=== PATIENT | male | born 1935 | race Caucasian/White ===

== ENCOUNTER 2022-12-16 11:14 | Emergency (ER) | payer OTHER, MEDICARE ==
[2022-12-16] MEDS ORDERED: Zofran 4 MG/2 ML VIAL IV ONE (11:22)
[2022-12-16] MEDS ORDERED: MORPHINE SULFATE 4 MG INJ IV ONE (11:22)
--- NOTE | 2022-12-16 11:29 | ERPHSYRPT ---
- History of Present Illness Time Seen by Provider: 12/16/22 11:24 Source: patient Exam Limitations: no limitations Physician History: Patient is an 87-year-old male presents to our ED via EMS for evaluation of gross hematuria. Family reports symptoms started this morning at approximately 4 AM. Patient's home health nurse and family estimate approximately 600 cc of gross blood. Patient arrived via [facility] ambulance. Patient has had this problem in the past. Patient was seen at [facility] for the same and discharged 2 days ago. They did not return to his [facility] as EMS was concerned with patient's blood pressure and blood loss. Patient complains of lower abdominal pain. Patient has indwelling Maynard catheter which he states is due to enlarged prostate. Patient on Eliquis for history of PE. [facility]. Patient denies trauma. No fever. No nausea vomiting or diaphoresis. No flank pain. No hematochezia. Patient voices no other complaints or concerns at this time. Portions of this note were created with voice recognition technology. There may be grammatical, spelling, punctuation or sound alike errors Timing/Duration: today Severity: moderate Modifying Factors: Improves With: other (Palpation to lower abdomen/suprapubic region reproduces pain.) Associated Symptoms: denies symptoms Allergies/Adverse Reactions: clindamycin Allergy (Verified 12/16/22 14:40) oxycodone Allergy (Verified 12/16/22 14:40) Penicillins Allergy (Verified 12/16/22 14:40) Sulfa (Sulfonamide Antibiotics) Allergy (Verified 12/16/22 14:40) adhesive tape Adverse Reaction (Verified 12/16/22 14:40) atorvastatin Adverse Reaction (Verified 12/16/22 14:40) pravastatin Adverse Reaction (Verified 12/16/22 14:40) Home Medications: Acetaminophen 500 mg [Tylenol Extra Strength 500 mg] 1,000 mg PO BID 12/16/22 [History] Allopurinol 100 mg [Zyloprim 100 mg] 200 mg PO DAILY 12/16/22 [History] Apixaban [Eliquis] 5 mg PO BID 12/16/22 [History] Bisacodyl 10 mg [Dulcolax 10 MG SUPP] 10 mg RC DAILY PRN 12/16/22 [History] Buspirone HCl 5 mg [Buspar 5 mg] 5 mg PO BID 12/16/22 [History] Calcium Carbonate [Calcium] 1,000 mg PO Q2H PRN 12/16/22 [History] Carboxymethylcellulose Sodium 2 each OP QID PRN 12/16/22 [History] Carvedilol 12.5 mg [Coreg 12.5 mg] 12.5 mg PO BID 12/16/22 [History] Cholecalciferol (Vitamin D3) [Vitamin D3] 100 mcg PO DAILY 12/16/22 [History] Divalproex Sodium ER 250 mg [Depakote EXTENDED RELEASE 250 MG] 250 mg PO BID 12/16/22 [History] Docusate Sodium 100 mg [Docusate Sodium 100 MG] 100 mg PO BID 12/16/22 [History] Duloxetine HCl 40 mg PO DAILY 12/16/22 [History] Finasteride 5 mg [Proscar 5 MG] 5 mg PO DAILY 12/16/22 [History] Furosemide 40 mg [Lasix 40 MG] 40 mg PO DAILY 12/16/22 [History] Montelukast Sodium 10 mg [Singulair 10 MG] 10 mg PO QPM 12/16/22 [History] Multivitamin [Multivitamins] 1 each PO DAILY 12/16/22 [History] Nitroglycerin 0.4 mg Tablet [Nitrostat 0.4 MG Tablet] 0.4 mg SL UD PRN 12/16/22 [History] Non-Formulary Drug [Non-Formulary Item] 0 each TOP BID 12/16/22 [History] Non-Formulary Drug [Non-Formulary Item] 0 each TOP DAILY 12/16/22 [History] Non-Formulary Drug [Non-Formulary Item] 1 each TOP DAILY 12/16/22 [History] PANTOPRAZOLE 40 mg Tablet [Protonix 40MG Tablet] 40 mg PO DAILY 12/16/22 [History] Pregabalin 50 mg [Lyrica 50MG] 75 mg PO BID 12/16/22 [History] Quetiapine Fumarate 25 mg [Seroquel 25 MG] 25 mg PO HS 12/16/22 [History] Ropinirole HCl 4 mg PO BID 12/16/22 [History] Rosuvastatin Calcium 2.5 mg PO UD 12/16/22 [History] Sennosides 8.6 mg PO DAILY 12/16/22 [History] Tamsulosin HCl 0.4 mg [Flomax 0.4 MG] 0.4 mg PO DAILY 12/16/22 [History] Trazodone HCl 50 mg [Desyrel 50 mg] 50 mg PO HS 12/16/22 [History] Triamcinolone Acetonide 0.1% [Kenalog 0.1% Ointment] 15 gm TP UD 12/16/22 [History] Trospium Chloride 20 mg PO BID 12/16/22 [History] - Review of Systems Constitutional: No Symptoms, No Fever, No Chills Eyes: No Symptoms Ears, Nose, & Throat: No Symptoms Respiratory: No Symptoms, No Cough, No Dyspnea Cardiac: No Symptoms, No Chest Pain, No Edema, No Syncope Abdominal/Gastrointestinal: No Symptoms, No Abdominal Pain, No Nausea, No Vomiting, No Diarrhea Genitourinary Symptoms: No Symptoms, No Dysuria Musculoskeletal: No Symptoms, No Back Pain, No Neck Pain Skin: No Symptoms, No Rash Neurological: No Symptoms, No Dizziness, No Focal Weakness, No Sensory Changes Psychological: No Symptoms Endocrine: No Symptoms Hematologic/Lymphatic: No Symptoms Immunological/Allergic: No Symptoms All Other Systems: Reviewed and Negative - Nursing Vital Signs Nursing Vital Signs: Initial Vital Signs Temperature 97.2 F 12/16/22 11:20 Pulse Rate 87 12/16/22 11:20 Respiratory Rate 20 12/16/22 11:20 Blood Pressure 126/55 12/16/22 11:20 O2 Sat by Pulse Oximetry 93 L 12/16/22 11:20 Pain Scale Pain Intensity 10 - Physical Exam General Appearance: no apparent distress, alert Eye Exam: PERRL/EOMI, eyes nml inspection Ears, Nose, Throat Exam: normal ENT inspection, TMs normal, pharynx normal, moist mucous membranes Neck Exam: normal inspection, non-tender, supple, full range of motion Respiratory Exam: normal breath sounds, lungs clear, airway intact, No respiratory distress Cardiovascular Exam: regular rate/rhythm, normal heart sounds, normal peripheral pulses Gastrointestinal/Abdomen Exam: soft, normal bowel sounds, No tenderness, No mass Back Exam: normal inspection, normal range of motion, No CVA tenderness, No vertebral tenderness Extremity Exam: normal inspection, normal range of motion, pelvis stable Neurologic Exam: alert, oriented x 3, cooperative, normal mood/affect, sensation nml, No motor deficits Skin Exam: normal color, warm, dry, No rash Lymphatic Exam: No adenopathy SpO2 Interpretation: normal SpO2: 93 O2 Delivery: Room Air - Course Nursing assessment & vital signs reviewed: Yes - CT Exams Abdomen/Pelvis CT Interpretation: Tele-radiologist Report (Diverticulosis, left renal cyst, right nephrolithiasis, blood in bladder, bilateral fatty inguinal hernias small fatty umbilical hernia, 3.1 cm AAA, chronic bony findings) Ordered Tests: Active Orders 24 hr Category Date Time Status IV Insertion STAT Care 12/16/22 11:19 Active Pulse Oximetry (ED) STAT Care 12/16/22 11:19 Active ABDOMEN AND PELVIS W/0 CONTRAS [CT] Stat Exams 12/16/22 11:21 Completed CBC W DIFF Stat Lab 12/16/22 11:35 Completed CMP Stat Lab 12/16/22 11:35 Completed CULTURE,URINE Stat Lab 12/16/22 14:34 Received PROTIME WITH INR Stat Lab 12/16/22 11:35 Completed PTT Stat Lab 12/16/22 11:35 Completed UA W/RFX UR CULTURE Stat Lab 12/16/22 14:34 Completed Medication Summary Generic Name Dose Route Start Last Admin Trade Name Freq PRN Reason Stop Dose Admin Sodium Chloride 1,000 mls @ 50 mls/hr 12/16/22 11:30 12/16/22 16:37 Sodium Chloride 0.9% 1000 Ml IV 01/15/23 11:29 50 mls/hr .Q20H TONIA Administration Discontinued Medications Generic Name Dose Route Start Last Admin Trade Name Freq PRN Reason Stop Dose Admin Ceftriaxone Sodium/Dextrose 1 g in 50 mls @ 100 mls/hr 12/16/22 16:32 12/16/22 16:37 Rocephin 1 Gm-D5w 50 Ml Bag IV 12/16/22 17:01 100 mls/hr STAT STA 100 mls/hr Administration Ceftriaxone Sodium/Dextrose Confirm 07/18/23 16:35 Rocephin 1 Gm-D5w 50 Ml Bag Administered 12/16/22 16:36 Dose 1 g in 50 mls @ ud IV .STK-MED ONE Morphine Sulfate 4 mg 12/16/22 11:22 12/16/22 11:51 Morphine Sulfate 4 Mg/Ml Injection IV 12/16/22 11:23 4 mg STAT ONE Administration Morphine Sulfate Confirm 12/16/22 11:48 Morphine Sulfate 4 Mg/Ml Injection Administered 12/16/22 11:49 Dose 4 mg .ROUTE .STK-MED ONE Ondansetron HCl 4 mg 12/16/22 11:22 Ondansetron Hcl 4 Mg/2 Ml Vial IV 12/16/22 11:23 STAT ONE Lab/Rad Data: Laboratory Result Diagrams 12/16/22 11:35 12/16/22 11:35 Laboratory Results 12/16/22 12/16/22 12/16/22 Range/Units 14:34 11:35 11:35 WBC (4.0-10.5) x10^3/uL RBC (4.1-5.6) x10^6/uL Hgb (12.5-18.0) g/dL Hct (42-50) % MCV (78-100) fL MCH (26-32) pg MCHC (32-36) g/dL RDW (11.5-14.0) % Plt Count (150-450) x10^3/uL MPV (7.5-11.0) fL Gran % (36.0-66.0) % Immature Gran % (Auto) (0.00-0.4) % Nucleat RBC Rel Count (0.00-0.1) % Eos # (Auto) (0-0.5) x10^3/uL Immature Gran # (Auto) (0.00-0.03) x10^3u/L Absolute Lymphs (auto) (1.0-4.6) x10^3/uL Absolute Monos (auto) (0.0-1.3) x10^3/uL Absolute Nucleated RBC (0.00-0.01) x10^3u/L Lymphocytes % (24.0-44.0) % Monocytes % (0.0-12.0) % Eosinophils % (0.00-5.0) % Basophils % (0.0-0.4) % Absolute Granulocytes (1.4-6.9) x10^3/uL Basophils # (0-0.4) x10^3/uL PT 11.3 (9.4-12.5) SECONDS INR 1.04 (0.8-3.0) APTT 29.7 (25.1-36.5) SECONDS Sodium 137 (137-145) mmol/L Potassium 4.5 (3.5-5.1) mmol/L Chloride 101 (98-107) mmol/L Carbon Dioxide 31 H (22-30) mmol/L Anion Gap 9.9 (5-15) MEQ/L BUN 27 H (9-20) mg/dL Creatinine 1.10 (0.66-1.25) mg/dL Estimated GFR > 60.0 ML/MIN Glucose 103 (74-106) mg/dL Calcium 8.5 (8.4-10.2) mg/dL Total Bilirubin 0.60 (0.2-1.3) mg/dL AST 21 (17-59) U/L ALT 22 (0-50) U/L Alkaline Phosphatase 56 (38-126) U/L Serum Total Protein 6.3 (6.3-8.2) g/dL Albumin 3.4 L (3.5-5.0) g/dL Urine Color Red A (Yellow) Urine Appearance Turbid A (Clear) Urine pH 5.0 (4.6-8.0) Ur Specific Torrey <=1.005 (1.005-1.030) Urine Protein 100 A (Negative) Urine Glucose (UA) Negative (Negative) mg/dL Urine Ketones Negative (Negative) Urine Blood Moderate A (Negative) Urine Nitrite Positive A (Negative) Urine Bilirubin Small A (Negative) Urine Urobilinogen 0.2 (0.2) mg/dL Ur Leukocyte Esterase Moderate A (Negative) U Hyaline Cast (Auto) NONE SEEN (0-2) /LPF Urine Microscopic RBC >100 A (0-5) /HPF Urine Microscopic WBC 51-100 A (0-5) /HPF Ur Epithelial Cells None Seen (None Seen) /HPF Urine Bacteria None Seen (None Seen) /HPF Urine Culture Reflexed ORDERED SEPARATELY (NO) 12/16/22 Range/Units 11:35 WBC 9.3 (4.0-10.5) x10^3/uL RBC 3.47 L (4.1-5.6) x10^6/uL Hgb 11.3 L (12.5-18.0) g/dL Hct 34.9 L (42-50) % MCV 100.6 H (78-100) fL MCH 32.6 H (26-32) pg MCHC 32.4 (32-36) g/dL RDW 14.1 H (11.5-14.0) % Plt Count 167 (150-450) x10^3/uL MPV 11.3 H (7.5-11.0) fL Gran % 78.5 H (36.0-66.0) % Immature Gran % (Auto) 0.4 (0.00-0.4) % Nucleat RBC Rel Count 0.0 (0.00-0.1) % Eos # (Auto) 0.21 (0-0.5) x10^3/uL Immature Gran # (Auto) 0.04 H (0.00-0.03) x10^3u/L Absolute Lymphs (auto) 0.97 L (1.0-4.6) x10^3/uL Absolute Monos (auto) 0.77 (0.0-1.3) x10^3/uL Absolute Nucleated RBC 0.00 (0.00-0.01) x10^3u/L Lymphocytes % 10.4 L (24.0-44.0) % Monocytes % 8.2 (0.0-12.0) % Eosinophils % 2.2 (0.00-5.0) % Basophils % 0.3 (0.0-0.4) % Absolute Granulocytes 7.32 H (1.4-6.9) x10^3/uL Basophils # 0.03 (0-0.4) x10^3/uL PT (9.4-12.5) SECONDS INR (0.8-3.0) APTT (25.1-36.5) SECONDS Sodium (137-145) mmol/L Potassium (3.5-5.1) mmol/L Chloride (98-107) mmol/L Carbon Dioxide (22-30) mmol/L Anion Gap (5-15) MEQ/L BUN (9-20) mg/dL Creatinine (0.66-1.25) mg/dL Estimated GFR ML/MIN Glucose (74-106) mg/dL Calcium (8.4-10.2) mg/dL Total Bilirubin (0.2-1.3) mg/dL AST (17-59) U/L ALT (0-50) U/L Alkaline Phosphatase (38-126) U/L Serum Total Protein (6.3-8.2) g/dL Albumin (3.5-5.0) g/dL Urine Color (Yellow) Urine Appearance (Clear) Urine pH (4.6-8.0) Ur Specific Torrey (1.005-1.030) Urine Protein (Negative) Urine Glucose (UA) (Negative) mg/dL Urine Ketones (Negative) Urine Blood (Negative) Urine Nitrite (Negative) Urine Bilirubin (Negative) Urine Urobilinogen (0.2) mg/dL Ur Leukocyte Esterase (Negative) U Hyaline Cast (Auto) (0-2) /LPF Urine Microscopic RBC (0-5) /HPF Urine Microscopic WBC (0-5) /HPF Ur Epithelial Cells (None Seen) /HPF Urine Bacteria (None Seen) /HPF Urine Culture Reflexed (NO) - Progress Progress: improved Progress Note: Patient is an 87-year-old male presents to our ED for evaluation of hematuria. Physical exam reveals suprapubic tenderness. Patient has gross blood in his indwelling Maynard catheter. Patient is on Eliquis for PE DVT. Work-up reveals Macrocytic anemia of 11.3. CT abdomen pelvis shows renal cysts. Debris suggestive of blood in the bladder. We performed bladder irrigation. The urine would clear however it would be later recur. Urinalysis reveals a urinary tract infection. Patient's hematuria likely combination of cystitis bladder irritation from indwelling Maynard catheter and Eliquis. However in light of the ongoing hematuria patient will require higher level of care as he will likely possibly need a cystoscopy. Patient will also need possibly cardiology to determine management of anticoagulation as this may be contributing the patient's hematuria. Plan of care discussed with patient. He agrees to transfer to [facility] for further evaluation and treatment. I spoke to Dr. Anguiano ER physician at [facility] who will accept transfer pending Dr. Harden's approval. Dr. Hardy their on-call urologist. I spoke to Dr. Loving at 4:25 PM. 12/16/22 16:33 Patient received a gram of Rocephin IV piggyback in our ED Complexity of problem addressed is moderate acute complicated No critical care time Complex of data reviewed and analyzed is extensive. Test ordered test reviewed and analyzed. Clinical correlation made between H&P and laboratory/imaging studies. It was determined that patient would better served at a facility that can provide a higher level of care specifically a specialization in urology and possibly cardiology. Management discussed with ER physician Dr. Loving who accepts transfer pending approval by Dr. Harden Risk of complication and or risk morbidity/mortality patient management is high. Patient will require hospitalization/transfer to higher level of care Patient agrees to transfer. Vital stable. Plan of care established for shared decision making. Patient voices no other complaints or concerns at this time. Portions of this note were created with voice recognition technology. There may be grammatical, spelling, punctuation or sound alike errors 12/16/22 16:[address] Harden at 5:[address] Harden excepts transfer. He states he will see patient as a consult on the floor at [facility]. Patient to be admitted to the hospitalist. 12/16/22 17:17 Counseled pt/family regarding: lab results, diagnosis, need for follow-up, rad results - Departure Departure Disposition: Transfer Clinical Impression: Hematuria, AAA (abdominal aortic aneurysm), Bilateral inguinal hernia, Fatty umbilical hernia, Renal cyst, left, Right nephrolithiasis, Gross hematuria, UTI (urinary tract infection) Condition: Stable Critical Care Time: No Referrals: HOSPITAL,'S [Primary Care Provider] - Follow up/PCP as directed
[2022-12-16] MEDS ORDERED: Sodium Chloride 0.9% 1000 ML 1,000 ML IV SCH (11:30)
[2022-12-16 11:39] LABS: Absolute Neutrophil Ct (ANC) 7.32 x10^3/uL (1.4-6.9); BASOPHIL % 0.3 % (0.0-0.4); Basophil (Absolute #) 0.03 x10^3/uL (0-0.4); Eosinophil % 2.2 % (0.00-5.0); Eosinophil (Absolute #) 0.21 x10^3/uL (0-0.5); Hematocrit 34.9 % (42-50); Hemoglobin 11.3 g/dL (12.5-18.0); IMMATURE GRAN # 0.04 x10^3u/L (0.00-0.03); IMMATURE GRAN % 0.4 % (0.00-0.4); Lymphocyte (Absolute #) 0.97 x10^3/uL (1.0-4.6); Lymphocytes % 10.4 % (24.0-44.0); Mean Cell Volume 100.6 fL (78-100); Mean Corpuscular Hemoglobin 32.6 pg (26-32); Mean Corpuscular Hgb Concent. 32.4 g/dL (32-36); Mean Platelet Volume 11.3 fL (7.5-11.0); Monocyte (Absolute #) 0.77 x10^3/uL (0.0-1.3); Monocytes % 8.2 % (0.0-12.0); Neutrophil % 78.5 % (36.0-66.0); Platelet Count 167 x10^3/uL (150-450); Red Blood Count 3.47 x10^6/uL (4.1-5.6); Red Cell Distribution Width 14.1 % (11.5-14.0); White Blood Count 9.3 x10^3/uL (4.0-10.5)
[2022-12-16] MEDS ORDERED: MORPHINE SULFATE 4 MG INJ ONE (11:48)
[2022-12-16 11:53] LABS: ALBUMIN 3.4 g/dL (3.5-5.0); ALKALINE PHOSPHATASE 56 U/L (38-126); ANION GAP 9.9 MEQ/L (5-15); BLOOD UREA NITROGEN 27 mg/dL (9-20); CHLORIDE 101 mmol/L (98-107); Calcium 8.5 mg/dL (8.4-10.2); Carbon Dioxide 31 mmol/L (22-30); EST GLOMERULAR FILTRATION RATE > 60.0 ML/MIN; Glucose 103 mg/dL (74-106); Potassium 4.5 mmol/L (3.5-5.1); SGOT/AST 21 U/L (17-59); SGPT/ALT 22 U/L (0-50); SODIUM 137 mmol/L (137-145); Total Protein 6.3 g/dL (6.3-8.2)
[2022-12-16 11:56] LABS: INR 1.04 (0.8-3.0); PROTIME 11.3 SECONDS (9.4-12.5); PTT 29.7 SECONDS (25.1-36.5)
--- NOTE | 2022-12-16 12:29 | XRAY ---
Indication: Pain. Hematuria. Multiple contiguous axial images obtained through the abdomen and pelvis without contrast. Comparison: None Lung bases demonstrates moderate dependent atelectasis. Heart is not enlarged with extensive coronary calcifications. [place] subcarinal and bilateral hilar calcified nodes. Noncontrasted stomach and bowel loops appear nonobstructed with normal appendix. Minimal descending and sigmoid diverticulosis without diverticulitis. Left kidney demonstrates a few cysts, largest midpole measuring 4.5 cm. Right lower renal calyx demonstrates nonobstructing punctate calculus. Normally distended urinary bladder demonstrates Maynard catheter in situ with slight hyperdensity surrounding the balloon tip, possible debris versus blood products. No free fluid/air. Remaining liver, gallbladder, pancreas, spleen, adrenal glands, kidneys, and ureters are unremarkable for noncontrast exam. Moderate scattered aortoiliac calcifications with 3.1 cm distal AAA. Osseous structures intact with osteopenia, moderate degenerative changes throughout visualized spine, and mild degenerative changes both hips. Incidental small bilateral fatty inguinal and small fatty umbilical hernias. Impression: 1. Maynard catheter in situ. Hyperdensity surrounds the balloon tip, possibly debris versus blood products. 2. Chronic findings including arteriosclerotic disease with distal AAA, colonic diverticulosis, left renal cysts, nonobstructing right renal punctate calculus, chronic bony findings, fatty umbilical/bilateral inguinal hernias, and old granulomatous disease.
[2022-12-16 14:44] LABS: Appearance Turbid (Clear); Bacteria None Seen /HPF (None Seen); Bilirubin Small (Negative); Blood Moderate (Negative); Epithelial Cells None Seen /HPF (None Seen); Glucose, Urine Negative (Negative); Hyaline Casts NONE SEEN /LPF (0-2); Leukocyte Esterase Moderate (Negative); Nitrite Positive (Negative); Protein,Urine Dip 100 (Negative); RBC >100 /HPF (0-5); Specific Gravity <=1.005 (1.005-1.030); Urobilinogen 0.2 mg/dL (0.2); WBC 51-100 /HPF (0-5)
[2022-12-16 14:45] LABS: ADD URINE CULTURE? ORDERED SEPARATELY (NO); Ketones Negative (Negative)
[2022-12-16] MEDS ORDERED: ROCEPHIN 1 Gm-D5w 50 ml Bag** 1 G/50 ML IVPB IV STA (16:32)
[2022-12-16] MEDS ORDERED: Sodium Chloride 0.9% 1000 ML 1,000 ML ONE (16:34)
[2022-12-16] MEDS ORDERED: ROCEPHIN 1 Gm-D5w 50 ml Bag** 1 G/50 ML IVPB IV ONE (16:35)
[2022-12-16 18:05] VITALS: BP 106/64; PULSE 68; O2SAT 92
== END 2022-12-16 19:14 | disposition short-term general hospital (02) ==
LOC: ED 11:14
DX: R31.0 Gross hematuria (principal); I71.40 Abdominal aortic aneurysm, without rupture, unspecified; K40.20 Bilateral inguinal hernia, without obstruction or gangrene, not specified as recurrent; K42.9 Umbilical hernia without obstruction or gangrene; N28.1 Cyst of kidney, acquired; N20.0 Calculus of kidney; N39.0 Urinary tract infection, site not specified; R10.30 Lower abdominal pain, unspecified; Z79.01 Long term (current) use of anticoagulants; Z79.899 Other long term (current) drug therapy
CPT/HCPCS: 36000; 36415; 74176; 80053; 81001; 85025; 85610; 85730; 87086; 94760; 96365; 96372; 99285; J0696; J2270

== ENCOUNTER 2022-12-28 13:45 | Emergency (ER) | payer OTHER, MEDICARE ==
[2022-12-28 14:19] VITALS: TEMP 98.4
[2022-12-28] MEDS ORDERED: Sodium Chloride 0.9% 1000 ML 1,000 ML ONE (14:28)
[2022-12-28] MEDS ORDERED: Sodium Chloride 0.9% 1000 ML 1,000 ML IV SCH (14:30)
[2022-12-28 14:42] LABS: Absolute Neutrophil Ct (ANC) 8.05 x10^3/uL (1.4-6.9); BASOPHIL % 0.5 % (0.0-0.4); Basophil (Absolute #) 0.05 x10^3/uL (0-0.4); Eosinophil % 4.5 % (0.00-5.0); Eosinophil (Absolute #) 0.46 x10^3/uL (0-0.5); Hematocrit 32.6 % (42-50); Hemoglobin 10.3 g/dL (12.5-18.0); IMMATURE GRAN # 0.03 x10^3u/L (0.00-0.03); IMMATURE GRAN % 0.3 % (0.00-0.4); Lymphocytes % 9.7 % (24.0-44.0); Mean Cell Volume 102.8 fL (78-100); Mean Corpuscular Hemoglobin 32.5 pg (26-32); Mean Corpuscular Hgb Concent. 31.6 g/dL (32-36); Mean Platelet Volume 11.3 fL (7.5-11.0); Monocyte (Absolute #) 0.72 x10^3/uL (0.0-1.3); Platelet Count 185 x10^3/uL (150-450); Red Blood Count 3.17 x10^6/uL (4.1-5.6); Red Cell Distribution Width 14.6 % (11.5-14.0); White Blood Count 10.3 x10^3/uL (4.0-10.5)
--- NOTE | 2022-12-28 14:42 | ERPHSYRPT ---
- History of Present Illness Time Seen by Provider: 12/28/22 14:39 Source: patient Patient Subjective Stated Complaint: SOB Triage Nursing Assessment: Patient brought into ED per EMS and transferred to bed with assist of 3. Patient A+O X3. Patient's skin pink, warm and dry. EMS reports getting called to patient with SOB. Upon arrival patient's home was very warm and he had several blankets on. Patient's initial O2 was 88% on room air. EMS applied O2 at 2 liters per N/C. Patient's O2 sat on room air in ER was 98%. Patient states he is still having trouble breathing. Patient denies pain or discomfort. No swelling or edema noted. Lungs diminished throughout. 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 Today patient call ambulance service for complaining of shortness of breath. Patient was brought into the emergency room where patient was appeared to be breathing normally but he was feeling very weak and was complaining that he has a hard time breathing. He denies any fever chills nausea or vomiting. Timing/Duration: today Associated Symptoms: weakness, ankle swelling, leg swelling Allergies/Adverse Reactions: clindamycin Allergy (Verified 12/28/22 13:58) oxycodone Allergy (Verified 12/28/22 13:58) Penicillins Allergy (Verified 12/28/22 13:58) Sulfa (Sulfonamide Antibiotics) Allergy (Verified 12/28/22 13:58) adhesive tape Adverse Reaction (Verified 12/28/22 13:58) atorvastatin Adverse Reaction (Verified 12/28/22 13:58) pravastatin Adverse Reaction (Verified 12/28/22 13:58) Home Medications: Acetaminophen 500 mg [Tylenol Extra Strength 500 mg] 1,000 mg PO BID 12/16/22 [History] Allopurinol 100 mg [Zyloprim 100 mg] 200 mg PO DAILY 12/16/22 [History] Apixaban [Eliquis] 5 mg PO BID 12/16/22 [History] Bisacodyl 10 mg [Dulcolax 10 MG SUPP] 10 mg RC DAILY PRN 12/16/22 [History] Buspirone HCl 5 mg [Buspar 5 mg] 5 mg PO BID 12/16/22 [History] Calcium Carbonate [Calcium] 1,000 mg PO Q2H PRN 12/16/22 [History] Carboxymethylcellulose Sodium 2 each OP QID PRN 12/16/22 [History] Carvedilol 12.5 mg [Coreg 12.5 mg] 12.5 mg PO BID 12/16/22 [History] Cholecalciferol (Vitamin D3) [Vitamin D3] 100 mcg PO DAILY 12/16/22 [History] Divalproex Sodium ER 250 mg [Depakote EXTENDED RELEASE 250 MG] 250 mg PO BID 12/16/22 [History] Docusate Sodium 100 mg [Docusate Sodium 100 MG] 100 mg PO BID 12/16/22 [History] Duloxetine HCl 40 mg PO DAILY 12/16/22 [History] Finasteride 5 mg [Proscar 5 MG] 5 mg PO DAILY 12/16/22 [History] Furosemide 40 mg [Lasix 40 MG] 40 mg PO DAILY 12/16/22 [History] Montelukast Sodium 10 mg [Singulair 10 MG] 10 mg PO QPM 12/16/22 [History] Multivitamin [Multivitamins] 1 each PO DAILY 12/16/22 [History] Nitroglycerin 0.4 mg Tablet [Nitrostat 0.4 MG Tablet] 0.4 mg SL UD PRN 12/16/22 [History] Non-Formulary Drug [Non-Formulary Item] 0 each TOP BID 12/16/22 [History] Non-Formulary Drug [Non-Formulary Item] 0 each TOP DAILY 12/16/22 [History] Non-Formulary Drug [Non-Formulary Item] 1 each TOP DAILY 12/16/22 [History] PANTOPRAZOLE 40 mg Tablet [Protonix 40MG Tablet] 40 mg PO DAILY 12/16/22 [History] Pregabalin 50 mg [Lyrica 50MG] 75 mg PO BID 12/16/22 [History] Quetiapine Fumarate 25 mg [Seroquel 25 MG] 25 mg PO HS 12/16/22 [History] Ropinirole HCl 4 mg PO BID 12/16/22 [History] Rosuvastatin Calcium 2.5 mg PO UD 12/16/22 [History] Sennosides 8.6 mg PO DAILY 12/16/22 [History] Tamsulosin HCl 0.4 mg [Flomax 0.4 MG] 0.4 mg PO DAILY 12/16/22 [History] Trazodone HCl 50 mg [Desyrel 50 mg] 50 mg PO HS 12/16/22 [History] Triamcinolone Acetonide 0.1% [Kenalog 0.1% Ointment] 15 gm TP UD 12/16/22 [History] Trospium Chloride 20 mg PO BID 12/16/22 [History] Hx Influenza Vaccination/Date Given: Yes Hx Pneumococcal Vaccination/Date Given: Yes Immunizations Up to Date: Yes Travel Risk - International Travel Have you traveled outside of the country in past 3 weeks: No - Coronavirus Screening Are you exhibiting any of the following symptoms?: No Close contact with a COVID-19 positive Pt in past 14-21 Days: No - Vaccine Status Have you recieved a Covid-19 vaccination: Yes [employer] Tier Off: Moderna - Vaccination Dates Date of 2cond Vaccination (if applicable): unknown - Review of Systems Constitutional: Weakness, No Fever, No Chills Eyes: No Symptoms Ears, Nose, & Throat: No Symptoms Respiratory: Dyspnea on Exertion (DERAS), No Cough, No Dyspnea Cardiac: Orthopnea, PND, No Chest Pain, No Edema, No Syncope Abdominal/Gastrointestinal: No Abdominal Pain, No Nausea, No Vomiting, No Diarrhea Genitourinary Symptoms: Urinary Retention, No Dysuria Musculoskeletal: No Back Pain, No Neck Pain Skin: No Rash Neurological: No Dizziness, No Focal Weakness, No Sensory Changes Psychological: No Symptoms Endocrine: No Symptoms All Other Systems: Reviewed and Negative - Past Medical History Other Medical History: pt won't answer at this time, in pain - Past Surgical History Other Surgical History: pt won't answer at this time - Social History Smoking Status: Former smoker Exposure to second hand smoke: No Drug Use: none Patient Lives Alone: No - Nursing Vital Signs Nursing Vital Signs: Initial Vital Signs Temperature 98.4 F 12/28/22 13:59 Pulse Rate 78 12/28/22 13:59 Respiratory Rate 24 12/28/22 13:59 Blood Pressure 124/54 12/28/22 13:59 O2 Sat by Pulse Oximetry 98 12/28/22 13:59 Pain Scale Pain Intensity 0 - Physical Exam General Appearance: mild distress, alert, lethargy Eye Exam: PERRL/EOMI Neck Exam: normal inspection, supple Respiratory Exam: diminished breath sounds, crackles/rales, rhonchi, wheezing Cardiovascular/Chest Exam: edema, JVD, irregular Abdominal/Gastrointestinal Exam: soft, No tenderness, No distention, No mass Extremity Exam: non-tender, normal range of motion, normal inspection, no calf tenderness, no pedal edema Neurologic Exam: alert, oriented x 3, cooperative, cadd instructor II-XII nml as tested, sensation nml, No motor deficits Skin Exam: normal color, warm, No dry SpO2 Interpretation: normal SpO2: 98 O2 Delivery: Room Air - Course Nursing assessment & vital signs reviewed: Yes - Radiology Exams Chest X-ray Interpretation: Reviewed by me (CHF changes) Ordered Tests: Active Orders 24 hr Category Date Time Status EKG-ER Only STAT Care 12/28/22 14:22 Active CHEST 1 VIEW (PORTABLE) Stat Exams 12/28/22 14:22 Taken CBC W DIFF Stat Lab 12/28/22 14:35 Completed CMP Stat Lab 12/28/22 14:35 Completed CULTURE,URINE Stat Lab 12/28/22 14:33 Received D-DIMER QUANTITATIVE Stat Lab 12/28/22 14:35 Completed MAGNESIUM Stat Lab 12/28/22 14:35 Completed NT PRO BNPII Stat Lab 12/28/22 14:35 Completed TROPONIN Q4H Lab 12/28/22 14:35 Completed TROPONIN Q4H Lab 12/28/22 18:30 Ordered TROPONIN Q4H Lab 12/28/22 22:30 Ordered UA W/RFX UR CULTURE Stat Lab 12/28/22 14:33 Completed Medication Summary Generic Name Dose Route Start Last Admin Trade Name Freq PRN Reason Stop Dose Admin Sodium Chloride 1,000 mls @ 50 mls/hr 12/28/22 14:30 12/28/22 14:28 Sodium Chloride 0.9% 1000 Ml IV 01/27/23 14:29 50 mls/hr .Q20H TONIA Administration Discontinued Medications Generic Name Dose Route Start Last Admin Trade Name Neel PRN Reason Stop Dose Admin Albuterol Sulfate Confirm 12/28/22 15:57 Albuterol Sulfate 2.5 Mg/3 Ml Neb Administered 12/28/22 15:58 Dose 2.5 mg IH .STK-MED ONE Albuterol/Ipratropium 3 ml 12/28/22 15:43 12/28/22 16:00 Ipratropium/Albuterol Sulfate 3 Ml Ampul.Neb IH 12/28/22 15:44 3 ml STAT ONE Administration Albuterol/Ipratropium Confirm 12/28/22 16:01 Ipratropium/Albuterol Sulfate 3 Ml Ampul.Neb Administered 12/28/22 16:02 Dose 3 ml IH .STK-MED ONE Ceftriaxone Sodium 1,000 mg 12/28/22 15:21 12/28/22 16:07 Ceftriaxone Sodium 1000 Mg Inj Vial IM 12/28/22 15:22 1,000 mg STAT ONE Administration Ceftriaxone Sodium Confirm 12/28/22 15:58 Ceftriaxone Sodium 1000 Mg Inj Vial Administered 12/28/22 15:59 Dose 1,000 mg .ROUTE .STK-MED ONE Methylprednisolone Sodium 0 mg 12/28/22 15:43 12/28/22 16:00 Succinate 125 mg/ Sterile IV 12/28/22 15:44 125 mg Water 2 ml STAT ONE Administration Enoxaparin Sodium 80 mg 12/28/22 15:56 Enoxaparin Sodium 80 Mg/0.8 Ml Syringe SQ 12/28/22 15:57 STAT ONE Enoxaparin Sodium Confirm 12/28/22 16:26 Enoxaparin Sodium 80 Mg/0.8 Ml Syringe Administered 12/28/22 16:27 Dose 80 mg SQ .STK-MED ONE Furosemide 20 mg 12/28/22 15:55 Furosemide 20 Mg/Vial IV 12/28/22 15:56 QAM STA Furosemide Confirm 12/28/22 16:26 Furosemide 20 Mg/Vial Administered 12/28/22 16:27 Dose 20 mg .ROUTE .STK-MED ONE Lidocaine HCl Confirm 12/28/22 15:58 Lidocaine Hcl 1% 20 Ml Mdv 20 Ml Ml Administered 12/28/22 15:59 Dose 3 ml .ROUTE .STK-MED ONE Methylprednisolone Sodium Succinate Confirm 12/28/22 15:58 Methylprednis Sod Succ 125 Mg/2 Ml Vial Administered 12/28/22 15:59 Dose 125 mg .ROUTE .STK-MED ONE Sterile Water Confirm 12/28/22 15:58 Water For Injection,Sterile 10 Ml Vial Administered 12/28/22 15:59 Dose 10 ml IJ .STK-MED ONE Lab/Rad Data: Laboratory Result Diagrams 12/28/22 14:35 12/28/22 14:35 Laboratory Results 12/28/22 12/28/22 12/28/22 Range/Units 14:35 14:35 14:35 WBC (4.0-10.5) x10^3/uL RBC (4.1-5.6) x10^6/uL Hgb (12.5-18.0) g/dL Hct (42-50) % MCV (78-100) fL MCH (26-32) pg MCHC (32-36) g/dL RDW (11.5-14.0) % Plt Count (150-450) x10^3/uL MPV (7.5-11.0) fL Gran % (36.0-66.0) % Immature Gran % (Auto) (0.00-0.4) % Nucleat RBC Rel Count (0.00-0.1) % Eos # (Auto) (0-0.5) x10^3/uL Immature Gran # (Auto) (0.00-0.03) x10^3u/L Absolute Lymphs (auto) (1.0-4.6) x10^3/uL Absolute Monos (auto) (0.0-1.3) x10^3/uL Absolute Nucleated RBC (0.00-0.01) x10^3u/L Lymphocytes % (24.0-44.0) % Monocytes % (0.0-12.0) % Eosinophils % (0.00-5.0) % Basophils % (0.0-0.4) % Absolute Granulocytes (1.4-6.9) x10^3/uL Basophils # (0-0.4) x10^3/uL D-Dimer 0.60 H (0.0-0.50) mg/L Sodium (137-145) mmol/L Potassium (3.5-5.1) mmol/L Chloride (98-107) mmol/L Carbon Dioxide (22-30) mmol/L Anion Gap (5-15) MEQ/L BUN (9-20) mg/dL Creatinine (0.66-1.25) mg/dL Estimated GFR ML/MIN Glucose (74-106) mg/dL Calcium (8.4-10.2) mg/dL Magnesium (1.6-2.3) mg/dL Total Bilirubin (0.2-1.3) mg/dL AST (17-59) U/L ALT (0-50) U/L Alkaline Phosphatase (38-126) U/L Troponin I 0.040 H* (0.000-0.034) ng/mL NT-Pro-B Natriuret Pep 310 (<300) pg/mL Serum Total Protein (6.3-8.2) g/dL Albumin (3.5-5.0) g/dL Urine Color (Yellow) Urine Appearance (Clear) Urine pH (4.6-8.0) Ur Specific [place] (1.005-1.030) Urine Protein (Negative) Urine Glucose (UA) (Negative) mg/dL Urine Ketones (Negative) Urine Blood (Negative) Urine Nitrite (Negative) Urine Bilirubin (Negative) Urine Urobilinogen (0.2) mg/dL Ur Leukocyte Esterase (Negative) U Hyaline Cast (Auto) (0-2) /LPF Urine Microscopic RBC (0-5) /HPF Urine Microscopic WBC (0-5) /HPF Ur Epithelial Cells (None Seen) /HPF Urine Bacteria (None Seen) /HPF Urine Culture Reflexed (NO) 12/28/22 12/28/22 12/28/22 Range/Units 14:35 14:35 14:33 WBC 10.3 (4.0-10.5) x10^3/uL RBC 3.17 L (4.1-5.6) x10^6/uL Hgb 10.3 L (12.5-18.0) g/dL Hct 32.6 L (42-50) % MCV 102.8 H (78-100) fL MCH 32.5 H (26-32) pg MCHC 31.6 L (32-36) g/dL RDW 14.6 H (11.5-14.0) % Plt Count 185 (150-450) x10^3/uL MPV 11.3 H (7.5-11.0) fL Gran % 78.0 H (36.0-66.0) % Immature Gran % (Auto) 0.3 (0.00-0.4) % Nucleat RBC Rel Count 0.0 (0.00-0.1) % Eos # (Auto) 0.46 (0-0.5) x10^3/uL Immature Gran # (Auto) 0.03 (0.00-0.03) x10^3u/L Absolute Lymphs (auto) 1.00 (1.0-4.6) x10^3/uL Absolute Monos (auto) 0.72 (0.0-1.3) x10^3/uL Absolute Nucleated RBC 0.00 (0.00-0.01) x10^3u/L Lymphocytes % 9.7 L (24.0-44.0) % Monocytes % 7.0 (0.0-12.0) % Eosinophils % 4.5 (0.00-5.0) % Basophils % 0.5 (0.0-0.4) % Absolute Granulocytes 8.05 H (1.4-6.9) x10^3/uL Basophils # 0.05 (0-0.4) x10^3/uL D-Dimer (0.0-0.50) mg/L Sodium 139 (137-145) mmol/L Potassium 4.5 (3.5-5.1) mmol/L Chloride 100 (98-107) mmol/L Carbon Dioxide 32 H (22-30) mmol/L Anion Gap 11.3 (5-15) MEQ/L BUN 35 H (9-20) mg/dL Creatinine 1.29 H (0.66-1.25) mg/dL Estimated GFR 55.9 ML/MIN Glucose 105 (74-106) mg/dL Calcium 8.8 (8.4-10.2) mg/dL Magnesium 2.7 H (1.6-2.3) mg/dL Total Bilirubin 0.30 (0.2-1.3) mg/dL AST 25 (17-59) U/L ALT 23 (0-50) U/L Alkaline Phosphatase 54 (38-126) U/L Troponin I (0.000-0.034) ng/mL NT-Pro-B Natriuret Pep (<300) pg/mL Serum Total Protein 6.1 L (6.3-8.2) g/dL Albumin 3.6 (3.5-5.0) g/dL Urine Color Yellow (Yellow) Urine Appearance Clear (Clear) Urine pH 7.5 (4.6-8.0) Ur Specific [place] 1.010 (1.005-1.030) Urine Protein Negative (Negative) Urine Glucose (UA) Negative (Negative) mg/dL Urine Ketones Negative (Negative) Urine Blood NHT (Negative) Urine Nitrite Negative (Negative) Urine Bilirubin Negative (Negative) Urine Urobilinogen 0.2 (0.2) mg/dL Ur Leukocyte Esterase Small A (Negative) U Hyaline Cast (Auto) NONE SEEN (0-2) /LPF Urine Microscopic RBC 0-2 (0-5) /HPF Urine Microscopic WBC 3-5 (0-5) /HPF Ur Epithelial Cells None Seen (None Seen) /HPF Urine Bacteria None Seen (None Seen) /HPF Urine Culture Reflexed ORDERED SEPARATELY (NO) - Progress Progress: unchanged Air Movement: fair Progress Note: 12/28/22 16:41 I talked to patient in his at length. I discussed with patient and explained him about his overall health condition. Patient has a chronic combined systolic and diastolic congestive heart failure with ejection fraction approximately 20%. Patient also has a COPD as well as chronic renal failure and obstructive uropathy. Patient also has paroxysmal atrial fibrillation. Overall condition of the patient is poor and overall survival is less than 6 mon ths. I educated and informed patient and his about considering hospice comfort measure at home. They agreed. Patient has a veterans nurse coming tomorrow to discuss his healthcare issues. I advised him to discuss with the veterans nurse about considering hospice comfort measures that at home. Patient and his agreed. Blood Culture(s) Obtained: No Antibiotics given: No Counseled pt/family regarding: lab results, diagnosis, need for follow-up, rad results Medical Desision Making - Independent Historian Additional History obtained from: Spouse - Diagnostic Testing Diagnostic test were ordered, analyzed, and reviewed by me: Yes Radiological Interpretation: Interpreted by me, Reviewed by me - Risk of complications The pt has a high risk of morbidity or mortality based on: Decision regarding hospitilization or escalation of hosp level of care, Decision not to resucitate - Departure Departure Disposition: Home Clinical Impression: Acute on chronic heart failure with reduced ejection fraction and diastolic dysfunction, Prostate enlargement, Obstructive and reflux uropathy COPD (chronic obstructive pulmonary disease) Qualifiers: COPD type: unspecified COPD Qualified Code(s): J44.9 - Chronic obstructive pulmonary disease, unspecified Atrial fibrillation Qualifiers: Atrial fibrillation type: paroxysmal Qualified Code(s): I48.0 - Paroxysmal atrial fibrillation Condition: Stable Critical Care Time: No Referrals: HOSPITAL,'S [Primary Care Provider] - Follow up/PCP as directed Instructions: Chronic Obstructive Pulmonary Disease, Shortness of Breath (Dyspnea) (DC), Exacerbation of COPD (DC), Heart Failure, Adult (DC), Heart failure and atrial fibrillation, Palliative Care, Getting the Care You Need, Medical care during advanced illness Additional Instructions: Discharge/Care Plan JEREMÍAS MCKEON was seen on 12/28/22 in the Emergency Room. The patient was counseled regarding Diagnosis,Lab results, Imaging studies, need for follow up and when to return to the Emergency Room. Prescriptions given: Discharge Note I have spoken with the patient and/or caregivers. I have explained the patient's condition, diagnosis and treatment plan based on the information available to me at this time. I have answered the patient's and/or caregiver's questions and addressed any concerns. The patient and/or caregivers have as good understanding of the patient's diagnosis, condition and treatment plan as can be expected at this point. The vital signs have been stable. The patient's condition is stable and appropriate for discharge from the emergency department. The patient will pursue further outpatient evaluation with the primary care physician or other designated or consulting physician as outlined in the discharge instructions. The patient and/or caregivers are agreeable to this plan of care and follow-up instructions have been explained in detail. The patient and/or caregivers have received these instruction. The patient/and or caregivers are aware that any significant change in condition or worsening of symptoms should prompt an immediate return to this or the closest emergency department or call 911. JEREMÍAS MCKEON was seen on 12/28/22 n the Emergency Room. At that time you were treated for an emergent condition, during your visit Laboratory, Radiology and/or other procedures may have been ordered. It is very important that you follow-up with your Primary Care Physician [facility] within the next 24-48 hours to review your Emergency Room visit and the final results of testing that was ordered. Some test results such as Urine Cultures, Blood Cultures, and other cultures if ordered will not be finalized for 24-48 hours. If you do not have a Primary Care Provider please call the medical records department at [phone] ext [phone] to obtain a copy of your results or you may sign into our patient portal to obtain these results by visiting us @ [email or web address] and completing the following steps: 1. Click on the Patient Portal link 2. Click the Patient Self Enrollment Link to complete the enrollment form and entering your 3. Once the enrollment form is completed you will receive an email with a temporary ID and password at the email address you provided. 4. Next choose a user name and password. Your user name must be at least 4 characters long and your password must be at least 4 characters long. 5. Choose a security question from the list and provide your answer to the question. If you already have signed into the Health Portal you may access your Health Care Information 22/12 by the following steps: 1. Login to our website @ [email or web address] 2. Enter your original user name and password. FAQS The [facility] Health Portal is an online tool that contains your Lab Results, Radiology Reports, Visit History, Discharge Instructions and Health Summary Lab and Radiology Results will not be available for 72 hours on the portal. The Portal is a secure site, passwords are encryted and URLs are re-written so they cannot be copied and pasted. You and authorized family members are the only ones who can access your Portal. Also there is a timeout feature that protects your information if you leave the Portal page open. If you have technical difficulty please use the Contact Us link on the page this will allow you to submit any questions you have regarding the Portal or you may contact the Medical Record Department at [phone].
[2022-12-28 15:02] LABS: ALBUMIN 3.6 g/dL (3.5-5.0); ANION GAP 11.3 MEQ/L (5-15); BILIRUBIN,TOTAL 0.3 mg/dL (0.2-1.3); Calcium 8.8 mg/dL (8.4-10.2); Creatinine 1 1.29 mg/dL (0.66-1.25); EST GLOMERULAR FILTRATION RATE 55.9 ML/MIN; MAGNESIUM 2.7 mg/dL (1.6-2.3); Potassium 4.5 mmol/L (3.5-5.1); Total Protein 6.1 g/dL (6.3-8.2)
[2022-12-28 15:03] LABS: ADD URINE CULTURE? ORDERED SEPARATELY (NO); Appearance Clear (Clear); Bacteria None Seen /HPF (None Seen); Bilirubin Negative (Negative); Blood NHT (Negative); Epithelial Cells None Seen /HPF (None Seen); Glucose, Urine Negative (Negative); Hyaline Casts NONE SEEN /LPF (0-2); Ketones Negative (Negative); Leukocyte Esterase Small (Negative); Nitrite Negative (Negative); Ph 7.5 (4.6-8.0); Protein,Urine Dip Negative (Negative); RBC 0-2 /HPF (0-5); Urobilinogen 0.2 mg/dL (0.2)
[2022-12-28] MEDS ORDERED: Rocephin 1000 MG INJ IM ONE (15:21)
[2022-12-28] MEDS ORDERED: DUONEB 0.5-3 MG/3 ml Neb IH ONE ×2 (15:43→16:01)
[2022-12-28] MEDS ORDERED: solu-MEDROL 125 MG, Sterile H2O 10 ml 2 ML IV ONE ×2 (15:43)
[2022-12-28] MEDS ORDERED: Lasix 20 MG/2 ML IV STA (15:55)
[2022-12-28] MEDS ORDERED: ENOXAPARIN SODIUM SQ ONE ×2 (15:56→16:26)
[2022-12-28] MEDS ORDERED: PROVENTIL 2.5 MG/3 ML NEB IH ONE (15:57)
[2022-12-28] MEDS ORDERED: XYLOCAINE 1% HCL 20 ML MDV ONE (15:58)
[2022-12-28] MEDS ORDERED: Sterile H2O 10 ml IJ ONE (15:58)
[2022-12-28] MEDS ORDERED: Rocephin 1000 MG INJ ONE (15:58)
[2022-12-28] MEDS ORDERED: solu-MEDROL ONE (15:58)
[2022-12-28] MEDS ORDERED: Lasix 20 MG/2 ML ONE (16:26)
[2022-12-28 17:37] VITALS: BP 147/59; PULSE 74; RESP 18; O2SAT 95
--- NOTE | 2022-12-28 20:04 | XRAY ---
Indication: Short of breath. Comparison: None Portable chest underinflated and clear. Heart not enlarged with tortuous descending aorta and a few distal paratracheal calcified nodes. Bony thorax intact with osteopenia and mild degenerative changes. Impression: Nonacute underinflated chest with chronic features.
== END 2022-12-28 18:03 | disposition home or self-care (01) ==
LOC: ED 13:45
DX: I11.0 Hypertensive heart disease with heart failure (principal); I50.23 Acute on chronic systolic (congestive) heart failure; N40.0 Benign prostatic hyperplasia without lower urinary tract symptoms; N13.9 Obstructive and reflux uropathy, unspecified; J44.9 Chronic obstructive pulmonary disease, unspecified; I48.0 Paroxysmal atrial fibrillation; R06.02 Shortness of breath; R53.1 Weakness; Z79.01 Long term (current) use of anticoagulants; Z79.899 Other long term (current) drug therapy
CPT/HCPCS: 36000; 36415; 71045; 80053; 81001; 83735; 83880; 84484; 85025; 85379; 87086; 93005; 94640; 96372; 96374; 99284; J0696; J1650; J1940; J2930; J7609; A9270-GY